=== PATIENT | female | born 1990 | race American Indian/Alaskan Native ===

== ENCOUNTER 2018-11-02 09:43 | Emergency (ER) | payer OTHER ==
[2018-11-02 10:33] VITALS: RESP 18; TEMP 98.7
--- NOTE | 2018-11-02 11:03 | ED PDOC ---
Arrival/HPI - General Chief Complaint: Back Pain Time Seen by Provider: 11/02/18 09:50 Historian: Patient - History of Present Illness Narrative History of Present Illness (Text): 28 y/o female with no significant PMH presents to ED c/o lower abdominal cramping x 1 week with associated lower back pain x 1 month. Abdominal pain is worse at night. Tolerating PO per baseline, last BM last week. Pt has been having constipation for the last few weeks. Passing gas. Also c/o foul smelling urine. Denies fever, chills, nausea, vomiting, diarrhea, chest pain, SOB, dysuria, saddle anesthesia, bowel/bladder incontinence, numbness, weakness, paresthesias, or any other associated complaints. Past Medical History - Provider Review Nursing Documentation Reviewed: Yes - Gastrointestinal Hx Colitis: Yes - Psychiatric Hx Substance Use: No - Anesthesia Hx Anesthesia: No Hx Anesthesia Reactions: No Hx Malignant Hyperthermia: No Family/Social History - Physician Review Nursing Documentation Reviewed: Yes Family/Social History: No Known Family HX Smoking Status: Never Smoked Hx Alcohol Use: No Hx Substance Use: No Allergies/Home Meds Allergies/Adverse Reactions: Allergies No Known Allergies Allergy (Verified 11/02/18 10:29) Review of Systems - Review of Systems Constitutional: Normal. absent: Fatigue, Fevers Eyes: Normal. absent: Vision Changes ENT: Normal. absent: Sore Throat, Sinus Congestion Respiratory: Normal. absent: SOB, Cough Cardiovascular: Normal. absent: Chest Pain, Palpitations, Syncope Gastrointestinal: Abdominal Pain, Constipation. absent: Stool Changes, Nausea, Vomiting, Appetite Changes Genitourinary Female: Other (foul smelling urine). absent: Dysuria, Frequency, Vaginal Bleeding, Vaginal Discharge Musculoskeletal: Back Pain. absent: Arthralgias Skin: Normal. absent: Rash Neurological: Normal. absent: Headache, Dizziness, Gait Changes, Disequilibrium Endocrine: Normal Hemo/Lymphatic: Normal Psychiatric: Normal Physical Exam Vital Signs Reviewed: Yes Vital Signs Temp Pulse Resp BP Pulse Ox 11/02/18 09:43 98.7 F 98 H 18 101/70 98 Temperature: Afebrile Blood Pressure: Normal Pulse: Regular Respiratory Rate: Normal Appearance: Positive for: Well-Appearing, Non-Toxic, Comfortable Pain Distress: None Mental Status: Positive for: Alert and Oriented X 3 - Systems Exam Head: Present: Atraumatic, Normocephalic Pupils: Present: PERRL Extroacular Muscles: Present: EOMI Conjunctiva: Present: Normal Mouth: Present: Moist Mucous Membranes Neck: Present: Normal Range of Motion Respiratory/Chest: Present: Clear to Auscultation, Good Air Exchange. No: Respiratory Distress, Accessory Muscle Use Cardiovascular: Present: Regular Rate and Rhythm, Normal S1, S2, Peripheal Pulses Present. No: Murmurs Abdomen: Present: Normal Bowel Sounds. No: Tenderness, Distention, Peritoneal Signs, Rebound, Guarding Back: Present: Normal Inspection. No: CVA Tenderness Upper Extremity: Present: Normal Inspection, Normal ROM, NORMAL PULSES, Neurovascularly Intact, Capillary Refill < 2s. No: Cyanosis, Edema, Temperature Abnormalties Lower Extremity: Present: Normal Inspection, NORMAL PULSES, Normal ROM, Neurovascularly Intact, Capillary Refill < 2 s. No: Edema, Temperature Abnormalties Neurological: Present: GCS=15, CN II-XII Intact, Speech Normal, Motor Func Grossly Intact, Normal Sensory Function, Gait Normal Skin: Present: Warm, Dry, Normal Color. No: Rashes Lymphatic: No: Cervical Adenopathy Psychiatric: Present: Alert, Oriented x 3, Normal Insight, Normal Concentration, Normal Affect, Normal Mood Medical Decision Making ED Course and Treatment: Initial Plan: * Bloodwork * Obstructive Series * Transvaginal US Labwork unremarkable AXR shows constipation TV US shows fibroids and nathobian cysts UA shows UTI, will treat for pyelonephritis secondary to back pain Diagnostic testing results and plan of care discussed with patient. Strict instructions given regarding prescription use, importance of followup, and signs/symptoms to return to ER including worsening abdominal or back pain, fever, chills, or any other new/worsening symptoms. Pt verbalized understanding of discussion. Patient is A&Ox3, ambulating with steady gait, with vital signs stable for discharge. - Lab Interpretations Lab Results: 11/02/18 11:10 11/02/18 11:10 Lab Results 11/02/18 11:11: Urine Color Yellow, Urine Appearance Clear, Urine pH 7.0, Ur Specific [place] 1.020, Urine Protein Negative, Urine Glucose (UA) Negative, Urine Ketones Negative, Urine Blood Moderate H, Urine Nitrate Positive H, Urine Bilirubin Negative, Urine Urobilinogen 0.2, Ur Leukocyte Esterase Negative, Urine RBC 20 - 25 H, Urine WBC 0 - 2, Ur Epithelial Cells 3 - 4, Urine Bacteria Large, Urine Other [place] 11/02/18 11:10: Sodium 139, Potassium 4.7, Chloride 105, Carbon Dioxide 27, Anion Gap 12, BUN 13, Creatinine 0.9, Est GFR ( Amer) > 60, Est GFR (Non- Af Amer) > 60, Random Glucose 92, Calcium 9.4, Total Bilirubin 0.3, AST 31, ALT 29, Alkaline Phosphatase 122, Total Protein 8.6 H, Albumin 4.1, Globulin 4.5, Albumin/Globulin Ratio 0.9 L 11/02/18 11:10: WBC 9.9, RBC 4.40, Hgb 11.5 L, Hct 36.4, MCV 82.7, MCH 26.1, MCHC 31.6, RDW 13.8, Plt Count 387, MPV 9.4, Neut % (Auto) 67.1, Lymph % (Auto) 26.2, [place] % (Auto) 5.3, Eos % (Auto) 1.1 L, Baso % (Auto) 0.3, Lymph # (Auto) 2.6, [place] # (Auto) 0.5, Eos # (Auto) 0.1, Baso # (Auto) 0.03, Absolute Neuts (auto) 6.64 H I have reviewed the lab results: Yes - RAD Interpretation Narrative RAD Interpretations (Text): 11/02/18 14:43 X-ray of Abdomen reviewed by radiologist, shows: FINDINGS: BOWEL: Large amount of stool is present throughout the colon consistent with fecal retention/constipation. No evidence of acute mechanical bowel obstruction. No gross free intraperitoneal air seen under the diaphragmatic surfaces. BONES: Normal. OTHER FINDINGS: Multiple small calcified phleboliths seen overlying the inferior half of the true pelvis bilaterally. IMPRESSION: Findings consistent with constipation as described. No evidence of acute mechanical bowel obstruction. 11/02/18 15:16 Transvaginal US reviewed by radiologist, shows: FINDINGS: UTERUS: Measures 8.2 x 3.4 x 4.7 cm. Uterus is anteverted and appears heterogeneous in echotexture with a small hypoechoic lesion identified at the high fundus sub serosal in location measures 0.8 x 0.8 x 0.9 cm compatible with a small fibroid. The remainder of the uterus is nonfocal though heterogeneous in echotexture. ENDOMETRIUM: Measures 1.9 mm in diameter. Unremarkable. CERVIX: Small nabothian cyst identified in the posterior cervix. RIGHT OVARY: Measures 3.1 x 2.7 x 3.0 cm. No solid mass. Normal flow. A few follicles are questioned within the right ovary, which is otherwise unremarkable appearing. LEFT OVARY: Measures 3.7 x 2.4 x 3.3 cm. No solid mass. Normal flow. A few follicles are identified within the left ovary. FREE FLUID: No significant free fluid noted. OTHER FINDINGS: None. IMPRESSION: 1. Small uterine fibroids identified in the high posterior fundus sub serosal in location with remainder the uterus remarkable only for heterogeneous but nonfocal myometrial echotexture and unremarkable endometrium. 2. Small nabothian cyst posterior cervix which is otherwise unremarkable 3. No sonographic evidence to suggest ovarian torsion bilaterally with infrequent small follicle suggests at the right and likely at the left. No definite suspicious adnexal findings bilaterally. 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 Ulcer: No History Surgical Site Infection Following: None - Disposition Have Diagnosis and Disposition been Completed?: Yes Diagnosis: Pyelonephritis, Constipation, Fibroids Disposition: HOME/ ROUTINE Disposition Time: 14:30 Patient Plan: Discharge Condition: STABLE Discharge Instructions (ExitCare): Urinary Tract Infection, Adult (DC), Kidney Infection (DC), Constipation, Adult (DC) Additional Instructions: Bactrim every 12 hours for 2 weeks Increase fluids and fiber Magnesium citrate 1 bottle daily for 3 days until bowel movement Followup with primary doctor within 2 days Followup with OBGYN within 2 days Return to ER with any new/worsening symptoms Prescriptions: Magnesium Citrate [Citrate of Mag] 300 ml PO DAILY #3 bottle Sulfamethoxazole/Trimethoprim [Bactrim DS 800 mg-160 mg] 1 tab PO Q12H #27 tab Referrals: [facility] at [facility] [place] [Outside] - Follow up with primary Zana Jones DO [Staff Provider] - Follow up with primary Kylie Perkins MD [Medical Doctor] - Follow up with primary Shahid Mayer DO [Staff Provider] - Follow up with primary Forms: [email or web address] [facility] ([place]), WORK NOTE
[2018-11-02 11:24] LABS: BASO # 0.03 K/mm3 (0.0-2.0); BASO % 0.3 % (0.0-3.0); EOS # 0.1 (0.0-0.7); EOS % 1.1 % (1.5-5.0); HEMOGLOBIN 11.5 g/dL (12.0-16.0); LYMPH # 2.6 (1.2-3.4); LYMPH % 26.2 % (22.0-35.0); MEAN CELL VOLUME 82.7 fl (80.0-105.0); MEAN CORPUSCULAR HEMOGLOBIN 26.1 pg (25.0-35.0); MEAN CORPUSCULAR HGB CONC 31.6 g/dl (31.0-37.0); MEAN PLATELET VOLUME 9.4 fl (7.0-11.0); MONO # 0.5 (0.1-0.6); MONO % 5.3 % (1.0-6.0); RBC 4.4 10^6/uL (3.5-6.1); RED CELL DISTRIBUTION WIDTH 13.8 % (11.5-14.5); WHITE BLOOD COUNT 9.9 10^3/uL (4.5-11.0)
[2018-11-02 11:31] LABS: ALB/GLOB RATIO 0.9 (1.1-1.8); ALBUMIN 4.1 g/dL (3.0-4.8); ALT/SGPT 29 U/L (7-56); AST/SGOT 31 U/L (14-36); BLOOD UREA NITROGEN 13 mg/dL (7-21); CALCIUM 9.4 mg/dL (8.4-10.5); GFR NON-AFRICAN AMERICAN > 60
[2018-11-02 11:35] LABS: URINE BILIRUBIN NEGATIVE (NEGATIVE); URINE BLOOD MODERATE (NEGATIVE); URINE GLUCOSE (UA) NEGATIVE (NEGATIVE); URINE LEUKOCYTE ESTERASE NEGATIVE Leu/uL (NEGATIVE); URINE PROTEIN NEGATIVE mg/dL (<30 mg/dL); URINE UROBILINOGEN 0.2 E.U./dL (<1 E.U./dL)
[2018-11-02 11:37] LABS: URINE COLOR YELLOW (YELLOW)
[2018-11-02 11:38] LABS: URINE APPEARANCE CLEAR (CLEAR)
[2018-11-02 11:59] LABS: URINE BACTERIA LARGE /hpf; URINE RBC 20 - 25 /hpf (0-2); URINE WBC 0 - 2 /hpf (0-6)
--- NOTE | 2018-11-02 14:35 | RAD ---
Date of service: 11/02/2018 HISTORY: constipation, lower abdominal pain COMPARISON: None available. FINDINGS: BOWEL: Large amount of stool is present throughout the colon consistent with fecal retention/constipation. No evidence of acute mechanical bowel obstruction. No gross free intraperitoneal air seen under the diaphragmatic surfaces. BONES: Normal. OTHER FINDINGS: Multiple small calcified phleboliths seen overlying the inferior half of the true pelvis bilaterally. IMPRESSION: Findings consistent with constipation as described. No evidence of acute mechanical bowel obstruction.
--- NOTE | 2018-11-02 14:54 | US ---
Date of service: 11/02/2018 HISTORY: vaginal bleeding, pain COMPARISON: None available. TECHNIQUE: Transvaginal pelvic ultrasound was performed with longitudinal and transverse images submitted for interpretation. FINDINGS: UTERUS: Measures 8.2 x 3.4 x 4.7 cm. Uterus is anteverted and appears heterogeneous in echotexture with a small hypoechoic lesion identified at the high fundus sub serosal in location measures 0.8 x 0.8 x 0.9 cm compatible with a small fibroid. The remainder of the uterus is nonfocal though heterogeneous in echotexture. ENDOMETRIUM: Measures 1.9 mm in diameter. Unremarkable. CERVIX: Small nabothian cyst identified in the posterior cervix. RIGHT OVARY: Measures 3.1 x 2.7 x 3.0 cm. No solid mass. Normal flow. A few follicles are questioned within the right ovary, which is otherwise unremarkable appearing. LEFT OVARY: Measures 3.7 x 2.4 x 3.3 cm. No solid mass. Normal flow. A few follicles are identified within the left ovary. FREE FLUID: No significant free fluid noted. OTHER FINDINGS: None. IMPRESSION: 1. Small uterine fibroids identified in the high posterior fundus sub serosal in location with remainder the uterus remarkable only for heterogeneous but nonfocal myometrial echotexture and unremarkable endometrium. 2. Small nabothian cyst posterior cervix which is otherwise unremarkable 3. No sonographic evidence to suggest ovarian torsion bilaterally with infrequent small follicle suggests at the right and likely at the left. No definite suspicious adnexal findings bilaterally.
[2018-11-02] MEDS ORDERED: Tmp-Smz 800 mg-160 mg DS Tab PO STA (15:09)
[2018-11-02 16:31] VITALS: BP 112/77
[2018-11-02 16:37] VITALS: PULSE 76; O2SAT 100
== END 2018-11-02 15:30 | disposition home or self-care (01) ==
LOC: ED 09:43
DX: N12 Tubulo-interstitial nephritis, not specified as acute or chronic (principal); K59.00 Constipation, unspecified; D25.9 Leiomyoma of uterus, unspecified

== ENCOUNTER 2018-12-29 16:54 | Emergency (ER) | payer OTHER ==
[2018-12-29 17:05] VITALS: BMI 31.9
[2018-12-29 17:07] VITALS: RESP 18; TEMP 98.5
[2018-12-29] MEDS ORDERED: Sodium Chloride 0.9% 1,000 ML IV STA (17:56)
[2018-12-29 18:19] LABS: BASO # 0.03 K/mm3 (0.0-2.0); BASO % 0.3 % (0.0-3.0); EOS # 0.1 (0.0-0.7); EOS % 0.9 % (1.5-5.0); HEMOGLOBIN 11.1 g/dL (12.0-16.0); LYMPH # 3.2 (1.2-3.4); LYMPH % 31.4 % (22.0-35.0); MEAN CELL VOLUME 82.8 fl (80.0-105.0); MEAN CORPUSCULAR HEMOGLOBIN 26.2 pg (25.0-35.0); MEAN CORPUSCULAR HGB CONC 31.6 g/dl (31.0-37.0); MEAN PLATELET VOLUME 9.4 fl (7.0-11.0); MONO # 0.6 (0.1-0.6); RBC 4.24 10^6/uL (3.5-6.1); RED CELL DISTRIBUTION WIDTH 14.8 % (11.5-14.5); WHITE BLOOD COUNT 10.3 10^3/uL (4.5-11.0)
[2018-12-29 18:20] LABS: URINE APPEARANCE CLEAR (CLEAR); URINE BILIRUBIN NEGATIVE (NEGATIVE); URINE BLOOD MODERATE (NEGATIVE); URINE COLOR YELLOW (YELLOW); URINE GLUCOSE (UA) NEGATIVE (NEGATIVE); URINE LEUKOCYTE ESTERASE NEGATIVE Leu/uL (NEGATIVE); URINE PROTEIN NEGATIVE mg/dL (<30 mg/dL); URINE UROBILINOGEN 0.2 E.U./dL (<1 E.U./dL)
[2018-12-29 18:25] LABS: URINE WBC 0 - 2 /hpf (0-6)
[2018-12-29 18:29] LABS: ALB/GLOB RATIO 0.9 (1.1-1.8); ALBUMIN 4.1 g/dL (3.0-4.8); ALT/SGPT 12 U/L (7-56); AST/SGOT 40 U/L (14-36); BLOOD UREA NITROGEN 15 mg/dL (7-21); CALCIUM 9.5 mg/dL (8.4-10.5); GFR NON-AFRICAN AMERICAN > 60; LIPASE 94 U/L (23-300)
--- NOTE | 2018-12-29 19:06 | ED PDOC ---
Arrival/HPI - General Chief Complaint: Abdominal Pain Time Seen by Provider: 12/29/18 16:56 Historian: Patient - History of Present Illness Narrative History of Present Illness (Text): 12/29/18 19:00 28yr old female presents today with 3 day history of lower abdominal pain. pt states pain is a crampy sensation. pt states she has been having some back pain and dizziness. pt states she is 1 week late on her LMP. pt denies vaginal bleeding. pt denies vaginal discharge. pt states she thinks she has a UTI as she has slight dysuria and noticed the urine was slightly cloudy. pt denies fever/chills. no n/v/d/c. no dizziness or weakness. no other complaints. Past Medical History - Provider Review Nursing Documentation Reviewed: Yes - Travel History Have you recently traveled outside [place] w/in the past 3 mons?: No - Infectious Disease Hx of Infectious Diseases: None - Cardiac Hx Cardiac Disorders: No - Pulmonary Hx Respiratory Disorders: No - Neurological Hx Neurological Disorder: No - HEENT Hx HEENT Disorder: No - Renal Hx Renal Disorder: No - Hematological/Oncological Hx Blood Disorders: No - Integumentary Hx Dermatological Disorder: No - Musculoskeletal/Rheumatological Hx Musculoskeletal Disorders: No - Gastrointestinal Hx Gastrointestinal Disorders: Yes Hx Colitis: Yes - Genitourinary/Gynecological Hx Genitourinary Disorders: No - Psychiatric Hx Psychophysiologic Disorder: No Hx Substance Use: No - Anesthesia Hx Anesthesia: No Hx Anesthesia Reactions: No Hx Malignant Hyperthermia: No Family/Social History - Physician Review Nursing Documentation Reviewed: Yes Family/Social History: Unknown Family HX Smoking Status: Never Smoked Hx Alcohol Use: No Hx Substance Use: No Allergies/Home Meds Allergies/Adverse Reactions: Allergies No Known Allergies Allergy (Verified 12/29/18 17:05) Review of Systems - Review of Systems Constitutional: absent: Fatigue, Fevers Respiratory: absent: SOB, Cough Cardiovascular: absent: Chest Pain, Palpitations Gastrointestinal: Abdominal Pain. absent: Constipation, Diarrhea, Nausea, Vomiting Genitourinary Female: Dysuria. absent: Frequency, Hematuria, Vaginal Bleeding, Vaginal Discharge Musculoskeletal: Back Pain. absent: Arthralgias, Neck Pain Skin: absent: Rash, Pruritis, Other Neurological: absent: Headache, Dizziness Psychiatric: absent: Anxiety, Depression Physical Exam Vital Signs Reviewed: Yes Vital Signs Temp Pulse Resp BP Pulse Ox 12/29/18 17:06 98.5 F 94 H 18 103/72 99 Temperature: Afebrile Blood Pressure: Normal Pulse: Regular Respiratory Rate: Normal Appearance: Positive for: Well-Appearing, Non-Toxic, Comfortable Pain Distress: None Mental Status: Positive for: Alert and Oriented X 3 - Systems Exam Head: Present: Atraumatic Mouth: Present: Moist Mucous Membranes Respiratory/Chest: Present: Clear to Auscultation Cardiovascular: Present: Regular Rate and Rhythm Abdomen: Present: Tenderness (Minimal suprapubic and lower abdominal tenderness). No: Distention, Peritoneal Signs, Rebound, Guarding Genitourinary/Pelvic Exam: Present: Normal External Genitalia, Vaginal Discharge (white thin vaginal discharge), Cervical os Closed, Other (chaparoned by Rosa long. ). No: Vaginal Bleeding, Vaginal Lesions, Adenexal Tenderness, Adenexal Mass, Cervical Motion Tendernes, Odor Back: Present: Normal Inspection. No: CVA Tenderness, Midline Tenderness, Paraspinal Tenderness Upper Extremity: Present: Normal ROM Lower Extremity: Present: Normal ROM Neurological: Present: GCS=15, Speech Normal Skin: Present: Warm, Dry, Normal Color. No: Rashes Psychiatric: Present: Alert, Oriented x 3 Medical Decision Making ED Course and Treatment: 12/29/18 19:09 Patient is nontoxic well appearing with stable vital signs presenting with lower abdominal pain CBC within normal limits CMP within normal limits Lipase within normal limits Urinalysis trace blood, no leukocytes. Ultrasound: Findings Uterus Measures 8.08 x 4 x 5.84 cm. Normal in size and appearance. Posterior fibroid measures 0.73 x 0.57 x 0.63 cm. Endometrium Measures 6.6 mm in diameter. Unremarkable. Cervix No cervical abnormality identified. Right ovary Measures 3.33 x 2.2 x 2.58 cm. No solid mass. Normal flow. Cyst measures 1.17 x 0.88 x 0.99 cm. Left ovary Measures 2.76 x 2.19 x 2.63 cm. No solid mass. Normal flow. Free fluid No significant free fluid noted. Other Findings None. Impression 1. Uterine fibroid. 2. Right ovarian cyst. Electronically signed on Dec 29, 2018 8:34:04 PM EDT by: Zana Hernandez M.D., HARJIDNER Certified By [employer] [facility] Fellowship Trained MRI and CT Specialist Patient reassessment: Patient is nontoxic well-appearing in no distress is s table vital signs pt with vaginal discharge. hx of BV in past. will send GC/chlamydia cultures; treated with rocephin and zithromax. will d/c home on flagyl bid x 7 days. Discussed all results with patient in depth Patient verbalizes understanding of discharge instructions and need for immediate followup. Impression: Abdominal pain, fibroid, ovarian cyst, vaginal discharge Motrin every 6 hours as needed for pain flagyl; 1 tablet twice daily x 7 days. Follow up with primary care physician within the next 2 days Follow up with the WORKING MANAGER within the next 2 days. Return immediately if symptoms worsen persist or if new symptoms develop: High fevers, increasing pain, vomiting, diarrhea or any other concerning symptoms develop Reassessment Condition: Re-examined, Improved - Lab Interpretations Lab Results: Total Bilirubin 0.2 mg/dL (0.2-1.3) 12/29/18 18:16 AST 40 U/L (14-36) H D 12/29/18 18:16 ALT 12 U/L (7-56) 12/29/18 18:16 Alkaline Phosphatase 141 U/L (38-126) H 12/29/18 18:16 Total Protein 8.8 g/dL (5.8-8.3) H 12/29/18 18:16 Albumin 4.1 g/dL (3.0-4.8) 12/29/18 18:16 Globulin 4.7 gm/dL 12/29/18 18:16 Albumin/Globulin Ratio 0.9 (1.1-1.8) L 12/29/18 18:16 Lipase 94 U/L (23-300) 12/29/18 18:16 Urine Color Yellow (YELLOW) 12/29/18 18:04 Urine Appearance Clear (CLEAR) 12/29/18 18:04 Urine pH 6.0 (4.7-8.0) 12/29/18 18:04 Ur Specific [place] 1.020 (1.005-1.035) 12/29/18 18:04 Urine Protein Negative mg/dL (<30 mg/dL) 12/29/18 18:04 Urine Glucose (UA) Negative mg/dL (NEGATIVE) 12/29/18 18:04 Urine Ketones Negative mg/dL (NEGATIVE) 12/29/18 18:04 Urine Blood Moderate (NEGATIVE) H 12/29/18 18:04 Urine Nitrate Negative (NEGATIVE) 12/29/18 18:04 Urine Bilirubin Negative (NEGATIVE) 12/29/18 18:04 Urine Urobilinogen 0.2 E.U./dL (<1 E.U./dL) 12/29/18 18:04 Ur Leukocyte Esterase Negative [place]/uL (NEGATIVE) 12/29/18 18:04 Urine RBC 2 - 5 /hpf (0-2) H 12/29/18 18:04 Urine WBC 0 - 2 /hpf (0-6) 12/29/18 18:04 Ur Epithelial Cells 4 - 5 /hpf (0-5) 12/29/18 18:04 Beta HCG, Quant < 2.39 mIU/mL (0-6.15) 12/29/18 18:16 - RAD Interpretation Radiology Orders: 12/29/18 17:56 TRANSVAGINAL [US] Stat - Medication Orders Current Medication Orders: Discontinued Medications Acetaminophen (Tylenol 325mg Tab) 975 mg PO STAT STA Stop: 12/29/18 17:57 Last Admin: 12/29/18 18:16 Dose: 975 mg MAR Pain/Vitals Document 12/29/18 18:16 SUZIE (Rec: 12/29/18 18:16 SUZIE [id number]) Pain Reassessment Is This A Pain ReAssessment? No Sleep Is patient sleeping during reassessment? No Presence of Pain Presence of Pain Yes Sodium Chloride (Sodium Chloride 0.9%) 1,000 mls @ 999 mls/hr IV .Q1H1M STA Stop: 12/29/18 18:56 Last Admin: 12/29/18 18:16 Dose: 999 mls/hr eMAR Start Stop Document 12/29/18 18:16 SUZIE (Rec: 12/29/18 18:17 SUZIE [id number]) Intravenous Solution Start Date 12/29/18 Start Time 18:16 End Date 12/29/18 End time 19:16 Total Infusion Time 60 Disposition/Present on Arrival - Present on Arrival Any Indicators Present on Arrival: No History of DVT/PE: No History of Uncontrolled Diabetes: No Urinary Catheter: No History of Decub. Ulcer: No History Surgical Site Infection Following: None - Disposition Have Diagnosis and Disposition been Completed?: Yes Diagnosis: Abdominal pain, Ovarian cyst, Fibroid, Vaginal discharge Disposition: HOME/ ROUTINE Disposition Time: 19:10 Patient Plan: Discharge Patient Problems: Current Active Problems Problem Status Onset Abdominal pain Acute Fibroid Acute Ovarian cyst Acute Condition: GOOD Discharge Instructions (ExitCare): Acute Abdomen (Belly Pain), Ovarian Cyst (DC), Uterine Fibroids, Vaginal Discharge in Adults Additional Instructions: Motrin every 6 hours as needed for pain flagyl; 1 tablet twice daily x 7 days. Follow up with primary care physician within the next 2 days Follow up with the WORKING MANAGER within the next 2 days. Return immediately if symptoms worsen persist or if new symptoms develop: High fevers, increasing pain, vomiting, diarrhea or any other concerning symptoms develop Prescriptions: metroNIDAZOLE [Flagyl] 500 mg PO BID #14 tab Referrals: Rory Robin MD [Staff Provider] - Follow up with primary Kylie Perkins MD [Medical Doctor] - Follow up with primary [facility] [Outside] - Follow up with primary Forms: [employer] (Romanian), WORK NOTE
[2018-12-29] MEDS ORDERED: cefTRIAXone (Rocephin) 250 mg Inj IM STA (21:23)
[2018-12-29 22:44] VITALS: BP 110/75; PULSE 82; O2SAT 100
--- NOTE | 2018-12-30 11:19 | US ---
Date of service: 12/29/2018 PROCEDURE: HISTORY: pelvic pain COMPARISON: TECHNIQUE: FINDINGS: The uterus measures 8.1 x 4.0 x 5.8 centimeters. There is a posterior myoma measuring 8 millimeters. The endometrium measures 7 millimeters. The right ovary measures 3.3 x 2.6 centimeters. Left arm measures 2.8 x 2.2 centimeters. There is no free fluid the pelvis. IMPRESSION: Small posterior myoma.
== END 2018-12-29 22:05 | disposition home or self-care (01) ==
LOC: ED 16:54
DX: N83.201 Unspecified ovarian cyst, right side (principal); D25.9 Leiomyoma of uterus, unspecified; R10.30 Lower abdominal pain, unspecified; N89.8 Other specified noninflammatory disorders of vagina
CPT/HCPCS: 76830; 80053; 81001; 81025; 83690; 84702; 85025; 87491; 87591; 96360; 96372; 99284; J0696; J7030